=== PATIENT | male | born 1950 | race Two or more races ===

== ENCOUNTER → 2020-08-06 | Outpatient (CLI) | payer OTHER | END | disposition home or self-care (01) | LOC: LAB 09:56 | PROVIDERS: ATTEND Radiology Diagnostic Radiology | DX: R10.9 Unspecified abdominal pain (principal) ==

== ENCOUNTER 2020-08-09 08:53 | Outpatient (CLI) | payer OTHER | END 2020-08-09 09:03 | disposition home or self-care (01) | LOC: TOM 08:53 | PROVIDERS: ATTEND Colon & Rectal Surgery | DX: R10.9 Unspecified abdominal pain (principal) ==

== ENCOUNTER 2020-08-11 09:33 | Outpatient (CLI) | payer OTHER | END 2020-08-11 09:38 | disposition home or self-care (01) | LOC: RX STUDY 09:33 | PROVIDERS: ATTEND Colon & Rectal Surgery | DX: R13.10 Dysphagia, unspecified (principal) ==

== ENCOUNTER 2020-09-17 05:45 | Day surgery (SDC) | payer OTHER | END 2020-09-17 10:40 | disposition home or self-care (01) | LOC: CIR.AMB 05:45 → AMB-ENDOS 05:45 → CIR.AMB 10:40 | PROVIDERS: ATTEND Colon & Rectal Surgery | DX: K63.5 Polyp of colon (principal); K29.50 Unspecified chronic gastritis without bleeding; K64.0 First degree hemorrhoids; K64.4 Residual hemorrhoidal skin tags; Z20.822 Contact with and (suspected) exposure to COVID-19 ==